=== PATIENT | female | born 1970 | race Caucasian/White ===

== ENCOUNTER 2019-02-06 09:12 | Emergency (ER) | payer BC ==
[~2019-02-06] VITALS: Ht 162.6 cm; Wt 56.7 kg
[2019-02-06 10:17] VITALS: BP 142/78
== END 2019-02-06 10:18 | disposition home or self-care (01) ==
LOC: M.ERS 09:12
DX: S61.011A Laceration without foreign body of right thumb without damage to nail, initial encounter (principal); W26.0XXA Contact with knife, initial encounter; Y93.89 Activity, other specified; Y92.89 Other specified places as the place of occurrence of the external cause; Y99.8 Other external cause status